=== PATIENT | female | born 1940 | race Caucasian/White ===

== ENCOUNTER 2022-01-16 00:23 | Outpatient (CLI) | payer MEDICARE, SELFPAY ==
--- NOTE | 2022-01-16 | DI.MRI_ITS ---
Exam(s) MR ABDOMEN WO/W EXAM: MR ABDOMEN WO/W CLINICAL HISTORY: F/U ABNL IMAGING, R93.5,? GB CA TECHNIQUE: Multiplanar multisequence MRA of the Abdomen was performed. Additional arterial and berenice ous phase post contrast imaging. MRCP sequences also performed. Some sequences degraded by respirat ory motion. CONTRAST MATERIAL: IV Contrast: 17 mL of Dotarem contrast administered. COMPARISON: US US ABD LTD - ONE ORGAN/QUAD from 11/07/2021 FINDINGS: Liver: Unremarkable. Pancreas: Unremarkable. Gallbladder: Small amount layering sludge. No evidence of mass or wall thickening. Bile Ducts: Unremarkable. No common duct stone. Adrenals: Unremarkable. Kidneys: Unremarkable. Spleen: Unremarkable. Aorta: Unremarkable. Soft Tissues: Unremarkable. Bowel: No dilatation. Diverticulum descending duodenum. Bone: Unremarkable. Lymph Nodes: Unremarkable. Chest: Left atrial and left ventricular enlargement. Sternal wires. Small hiatal hernia. No pleura l or pericardial effusion. IMPRESSION: Small amount of gallbladder sludge. No evidence of gallbladder mass. Normal diameter common bile duct without evidence of stone. Diverticulum of the descending duodenum. Hiatal hernia. DATA REPOSITORY:
[2022-01-16] MEDS: Gadoterate meglumine 20 ML VIAL 10 ML IVP (11:26)
[2022-01-16] MEDS: Normal Saline Flush 10 ML SYR IVP (11:28)
== END 2022-01-16 00:43 ==
PROVIDERS: Visit Provider Student in an Organized Health Care Education/Training Program
DX: K82.8 Other specified diseases of gallbladder (principal); K57.10 Diverticulosis of small intestine without perforation or abscess without bleeding; K44.9 Diaphragmatic hernia without obstruction or gangrene; R93.5 Abnormal findings on diagnostic imaging of other abdominal regions, including retroperitoneum
CPT/HCPCS: 74183

== ENCOUNTER 2025-04-20 11:59 | Outpatient (CLI) | payer MEDICARE, SELFPAY ==
[2025-04-20] VITALS (7 sets, daily range): BP systolic 152–206; BP diastolic 56–86; PULSE 54–66; RESP 14–17; TEMP 36.7; O2SAT 97–98
--- NOTE | 2025-04-20 12:57 | PDOC.PAIN ---
Date of service: 04/20/25 Time of Service: 12:57 Pain Managment Procedure Note Procedure Note Procedure Note: PROCEDURE NOTE RIGHT INTRA-ARTICULAR SACROILIAC JOINT INJECTION Date of Service: April 20, 2025 Patient: Vi Berkowitz Provider: Az Dixon DO, MPH COMMENTS: I previously evaluated the patient in the office and their symptoms in relation to the sacroiliac joint pain have remained the same. 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 Vi was interviewed and the medical record reviewed. There were no medical, pharmacologic, radiographic or other structural contraindications to attempting a fluoroscopically-guided, contrast-enhanced, intra-articular Sacroiliac joint injection. The risks, benefits, and potential side effects of this procedure were reviewed with the patient. Questions and concerns were addressed. After it was clear that Vi was fully informed about the procedure, the printed consent form was signed by the patient and myself. Vi was placed in the prone position on the fluoroscopy table and an automated blood pressure cuff, 3 lead EKG, and pulse oximeter were applied. The skin entry point for approaching the Right sacroiliac joint was identified under the most advantageous fluoroscopic view and marked. Following thorough Chlorhexadine preparation of the skin and draping with sterile surgical drapes, 2 mls of 1% lidocaine was infiltrated into the skin at the entry point and the surrounding subcutaneous tissues. Next, a 3.5 22G spinal needle was placed under fluoroscopic guidance into the Right sacroiliac joint. Intra-articular placement was confirmed by a clear arthrogram resulting from the injection of 0.25ml of Omnipaque-240. Next, 1 ml of Depo- Medrol 80 mg/ml was injected intra-articularly with an initial reproduction of a significant component of the usual pain. This was followed with 1 ml of 1% Lidocaine. The needle was then removed without difficulty. (49 ml of Omnipaque-240 was wasted). Vi's vital signs were stable throughout the procedure and were as recorded in nursing records. Follow up plans and appointments were discussed with Vi. Post procedure instructions were given as documented in nursing records. Having met discharge criteria, Vi was discharged from the [facility]. COMMENTS: Post-procedure pain: VAS= 4/10. If the patient receives at least 50% improvement in pain and/or function for at least 3 months, this procedure can be repeated if needed. I personally performed this entire procedure. AZ DIXON DO, MPH ABPMR-subspecialty board certification in Pain Medicine [facility] Coding Conscious Sedation used for procedure: No CPT Codes: SI Joint Inj; incl Fluoro - 94391 ([id number] ~G) Additional Codes: Date of Service (32411) Date of service: 04/20/25
--- NOTE | 2025-04-20 13:00 | DI.RAD_ITS ---
Exam(s) XR PAIN CLINIC SACRIOILIAC 2V EXAM: XR PAIN CLINIC SACRIOILIAC 2V CLINICAL HISTORY: Dx: Sacroiliac Joint Dysfunction. TECHNIQUE: Fluoroscopy was provided for the referring physician for guidance with performing pain cl inic injection procedure. COMPARISON: No exams were available for comparison FINDINGS: Please see procedure note for details. Fluoro time: 16.2 seconds RADIATION DOSE DELIVERED: Ka,r=5.1 mGy
[2025-04-20] MEDS: Omnipaque 240 MG/ML 50 ML BTL IJ (13:09)
[2025-04-20] MEDS: Nerve Block Tray 1 EACH MC (13:09)
[2025-04-20] MEDS: methylPREDNISolone ACETATE 80 MG/ML VIAL IJ (13:09)
== END 2025-04-20 12:00 | disposition home or self-care (01) ==
LOC: PC 12:01
PROVIDERS: PCP Nurse Practitioner Family; Visit Provider Preventive Medicine Occupational Medicine
DX: M53.3 Sacrococcygeal disorders, not elsewhere classified (principal); M54.50 Low back pain, unspecified
CPT/HCPCS: 27096; 72200; J1010; Q9967

== ENCOUNTER 2025-06-16 12:41 | Outpatient (CLI) | payer MEDICARE, SELFPAY ==
[2025-06-16] VITALS (9 sets, daily range): BP systolic 131–232; BP diastolic 68–104; PULSE 52–79; RESP 16–21; TEMP 36.5; O2SAT 96–98
--- NOTE | 2025-06-16 12:30 | DI.RAD_ITS ---
Exam(s) XR PAIN CLINIC LUMBAR SP 2V EXAM: XR PAIN CLINIC LUMBAR SP 2V CLINICAL HISTORY: Dx: Lumbar Radiculopathy. TECHNIQUE: Fluoroscopy was provided for the referring physician for guidance with performing pain clinic injection procedure. COMPARISON: No exams were available for comparison FINDINGS: Please see procedure note for details. Fluoro time: 30 seconds RADIATION DOSE DELIVERED: parisa Boyer=18.1 mGy
[2025-06-16] MEDS: methylPREDNISolone ACETATE 40 MG/ML VIAL IJ (13:22)
[2025-06-16] MEDS: Epidural Tray 1 EACH MC (13:23)
[2025-06-16] MEDS: Omnipaque 240 MG/ML 50 ML BTL IJ (13:23)
--- NOTE | 2025-06-25 07:35 | PDOC.PAIN ---
Date of service: 06/16/25 Time of Service: 12:33 Pain Managment Procedure Note Procedure Note Procedure Note: PROCEDURE NOTE LUMBAR EPIDURAL STEROID INJECTION Date of Service: June 16, 2025 Patient:Vi Benjamin? Provider: Az Dixon DO, MPH Vi Berkowitz has been referred to the [facility] for a lumbar epidural steroid injection. Pre-operative diagnosis: Lumbosacral Radiculopathy ICD-10 M54.16 Post-operative diagnosis: Same Pre-Procedure Pain: VAS= 6 /10 Comments: I saw the patient this morning in the office. She has a right L5 radiculopathy. Vi was interviewed and the medical record was reviewed.? There were no medical, pharmacologic, radiographic or other structural contraindications to attempting fluoroscopically guided Lumbar epidural steroid injection.? Risks, potential side effects, indications, and potential benefits of the procedure were reviewed with Vi.? Questions and concerns were addressed.? After it was clear that Vi was fully informed about the procedure, the printed consent form was signed by the patient and myself.? Vi was placed in the prone position on the fluoroscopy table and automated blood pressure cuff and pulse oximeter applied. The skin entry point for entering/approaching the epidural space for the lumbar epidural steroid injection was marked. Following thorough chlorhexadine preparation of the skin and draping and 1% lidocaine infiltration of the skin entry point and subcutaneous tissues, an 18 gauge Touhy needle was placed and advanced under fluoroscopic guidance and with loss of resistance technique into the L5-S1 epidural space. Needle tip placement and depth were aided and confirmed by fluoroscopy. There was no paresthesia or return of blood or CSF through the needle. 1 mls of Omnipaque 240 was injected with clear epidural spread confirmed with fluoroscopy. 80 mg of Depo-Medrol was? injected. This was followed by 1 ml of preservative-free normal saline to flush the steroid out of the needle. There was no unusual discomfort expressed by Vi. The needle was withdrawn without difficulty. (49 mls of Omnipaque was wasted) Vi was observed and was without hemodynamic, neurologic, or allergic reactions.? Fluoroscopic images were digitally archived. Vi's vital signs were stable throughout the procedure and were as recorded in nursing records. Follow up plans and appointments were discussed with Vi. Post procedure instruction was given as documented in nursing records and having met discharge criteria Vi was discharged from the [facility] Management [facility]. COMMENTS: No apparent complications. Post-procedure pain: VAS= 1/10. Vi to contact [facility] as needed. If at least 50% improvement in pain and/or function for at least 3 months is achieved, this procedure can be repeated. I personally performed this entire procedure. AZ DIXON DO, MPH ABPMR-subspecialty board certification in Pain Medicine [facility] Coding Conscious Sedation used for procedure: No CPT Codes: Inj Spine L/S w/Imaging - 71895 ([id number] ~G) Additional Codes: Date of Service (92281) Date of service: 06/16/25 Diagnoses: Lumbar radiculopathy
== END 2025-06-16 12:42 | disposition home or self-care (01) ==
PROVIDERS: PCP Nurse Practitioner Family; Visit Provider Preventive Medicine Occupational Medicine
DX: M54.50 Low back pain, unspecified (principal); M54.16 Radiculopathy, lumbar region
CPT/HCPCS: 62323; 72100; J1010; Q9967

== ENCOUNTER 2025-09-28 14:30 | Outpatient (CLI) | payer MEDICARE, SELFPAY ==
--- NOTE | 2025-09-28 06:00 | DI.RAD_ITS ---
Exam(s) XR PAIN CLINIC LUMBAR SP 2V EXAM: XR PAIN CLINIC LUMBAR SP 2V CLINICAL HISTORY: Dx: Lumbar Spondylosis TECHNIQUE: 2D and realtime digital imaging was performed. CONTRAST MATERIAL: Refer to procedure report. COMPARISON: No exams were available for comparison FINDINGS: Fluoroscopy was provided for Dr. Dixon during the performance of a lumbar medial branch block. Please refer to the procedure report for complete details. Ka,r=16 mGy IMPRESSION: RADIATION DOSE DELIVERED: 0.0 0.0 0
[2025-09-28 14:43] VITALS: BP 131/86; PULSE 60; RESP 20; TEMP 37; O2SAT 98
[2025-09-28] MEDS: Nerve Block Tray 1 EACH MC (15:20)
--- NOTE | 2025-09-28 15:44 | PDOC.PAIN_ITS ---
Date of service: 09/28/25 Time of Service: 15:44 Pain Managment Procedure Note Procedure Note Procedure Note: PROCEDURE NOTE Bilateral Lumbar Medial Branch Blocks Date of Service: September 28, 2025 Patient: Vi Berkowitz Provider: Az Dixon DO, MPH Vigaby Berkowitz has been referred to the [facility] for lumbar medial branch blocks. 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 Her low back pain has stayed the same. Vi was interviewed and the medical records were reviewed. There were no medical, pharmacologic, radiographic or other structural contraindications to attempting fluoroscopically guided local anesthetic lumbar medial branch blocks. Risks and potential side effects were discussed. I also discussed the potential benefit(s) of the procedure with Vi, and voiced concerns were addressed. After Vi was completely informed about the procedure, the printed consent form was signed. A standard time-out procedure was performed. Vi was placed in the prone position on the fluoroscopy table. Automated blood pressure cuff and pulse oximeter were applied. The skin entry points for approaching the anatomic target points of the segmental medial branches of bilat eral L3,L4,L5 were identified with fluoroscopy and marked. The skin at the target site area was thoroughly prepared with Chlorhexadine. The skin was then draped. Next, a 25 gauge 3.5 spinal needle was placed under fluoroscopic guidance down on to the target point (the articular pillar) for each respective segmental medial branch. Position was confirmed in A/P and lateral views. Aspiration revealed no blood or clear fluid. Next, 0.25ml of omnipaque 240 was injected at each level. No contrast following a vascular or neural pattern was visualized under continuous fluoroscopy. Next, 0.25 ml of preservative-free 0.5% bupivicaine was injected at each level. There was no unusual discomfort expressed by Vi. The needles were withdrawn without difficulty. (49 mls of Omnipaque was wasted) Vi was observed and was without hemodynamic, neurologic, or allergic reactions. Fluoroscopic images were digitally archived. Provacative testing using the Modified Mcclure's facet loading test- Left side Right Side Directly before the block VAS (0-10) = 9/10 VAS (0-10) = 9/10 Five minutes after the block VAS (0-10) = 6/10 VAS (0-10) = 6/10 Percentage relief obtained with this diagnostic block 40% 40% Any improved physical functioning directly after the blocks? Able to move her back much easier. Follow up plans and appointments were discussed with Vi. Vi was instructed to keep careful note of how the usual pain was modified by these injections. Specifically, to keep a pain diary for the next 4 hours using a numeric pain scale of 0-10 and report these results. Post procedure instruction was given as documented in the nursing documentation and having met discharge criteria, the patient was discharged from the [facility]. Based on the medial branches blocked today, if they patient has adequate relief and we are able to proceed to radiofrequency ablation, the treatment should result in the denervation of the bilateral L4-L5 and L5-S1 facet joints. We would expect to denervate a total of 4 facets during the radiofrequency ablation. COMMENTS: No apparent complications. Post-procedure pain: VAS= 6/10 Vi will call back with 0-4 hour post-procedure pain scores. I personally performed the entire procedure. AZ DIXON DO, MPH ABPM&R-subspecialty board certification in Pain Medicine [facility] Coding Conscious Sedation used for procedure: No CPT Codes: LMBB (includes Fluoro) Lumbar/Sacral, 2nd lvl - 87424 ([id number] ~G) LMBB (includes Fluoro) Lumbar/Sacral, single lvl *BILATERAL* - [id number] (6 271908~G5) Additional Codes: Date of Service () Diagnoses: lumbar spondylosis without myelopathy
[2025-09-28] MEDS: Omnipaque 240 MG/ML 50 ML BTL IJ (16:10)
[2025-09-28] MEDS: Bupivacaine 0.5% Pres-Free 10 ML VIAL IJ (16:10)
== END 2025-09-28 14:31 | disposition home or self-care (01) ==
LOC: PC 14:30
PROVIDERS: PCP Nurse Practitioner Family; Visit Provider Preventive Medicine Occupational Medicine
DX: M54.50 Low back pain, unspecified (principal); M47.816 Spondylosis without myelopathy or radiculopathy, lumbar region
CPT/HCPCS: 64493; 64494; 72100; J0665; Q9967

== ENCOUNTER 2025-10-11 14:10 | Outpatient (CLI) | payer MEDICARE, SELFPAY ==
[2025-10-11 14:15] VITALS: BP 155/78; PULSE 56; RESP 20; TEMP 37; O2SAT 98
--- NOTE | 2025-10-11 14:43 | PDOC.PAIN ---
Date of service: 10/11/25 Time of Service: 15:11 Pain Managment Procedure Note Procedure Note Procedure Note: LUMBAR MEDIAL BRANCH BLOCK #2 Location: Bilateral Medial Branches ? Levels: L3,4,5? (L4-5, L5-S1 FACET) ? Pre-procedure Diagnosis: M47.817 Spondylosis without myelopathy or radiculopathy, lumbosacral region M47.816 Spondylosis without myelopathy or radiculopathy, lumbar region ? Post-procedure Diagnosis:? The same as above ? Sedation: NONE? Estimated blood loss:? less than 2 ml ? Surgeon:? Champ Bryan MD COMMENT: Patient had? GREATER THAN 80 % relief after the first medial branch block for greater than the duration of the local anesthetic.? PRE PROCEDURE PAIN SCORE: 8/10. Patient has had pain radiating to right leg which was relieved with previous medial branch block ? Procedure Detail:? The procedure and potential risks were explained to the patient and informed written consent was obtained. The patient was escorted to the procedure room and placed in the prone position. Pillows were utilized for proper positioning and comfort.? Time out was performed in procedure room with nursing staff confirming the patient's identity, procedure to be performed, allergies, and any blood thinning or anti-platelet medications. The patient's lower back was prepped with chlorhexidine and draped in a sterile fashion. Sterile technique was maintained throughout the procedure.? Sterile gloves were used, a face mask was worn, and new single dose vials of all medications were used with the top being swabbed with alcohol and given time to dry prior to withdrawal of medication.? A left and right-sided oblique fluoroscopic view was obtained, with visualization of the: ?RIGHT and LEFT L3,4 and DORSAL RAMUS L5 AT SACRAL ALA ? junction of the transverse process and superior articular process. Lidocaine 1% was used to anesthetize the skin. A 22-gauge Quincke needle was advanced along the superior margin of the transverse process and lateral to the articular process.? It was directed inferiorly and medially so that the tip struck the junction of the base of the transverse process and the superior articular process. The needle was then walked over the superior aspect of the transverse process and advanced slightly along the course of the L3,4,5 medial branch nerves. Proper placement was verified in A/P, oblique and lateral views under fluoroscopy. At this location, following negative aspiration, 0.5ml 2% lidocaine was injected.? The patient tolerated the procedure well and was discharged home with instructions. Permanent images saved and recorded. Follow-up:?? Will plan to proceed with lumbar medial branch RFA if the patient gets good relief from today's procedure lasting for at least 2 hours. COMMENT:Pain went from 8/10 to 0/10. Before the patient left patient had 100% pain relief. Consider right L4 possibly L5 transforaminal for the radicular symptoms Coding Conscious Sedation used for procedure: No CPT Codes: LMBB (includes Fluoro) Lumbar/Sacral, single lvl *BILATERAL* - [id number] (2247034~G5) 50 - BILATERAL PROCEDURE LMBB (includes Fluoro) Lumbar/Sacral, 2nd lvl - 99730 (1024546 ~G) LT - LEFT SIDE, RT - RIGHT SIDE Additional Codes: Date of Service () Diagnoses: M47.817 Spondylosis without myelopathy or radiculopathy, lumbosacral region M47.816 Spondylosis without myelopathy or radiculopathy, lumbar region
[2025-10-11 14:56] VITALS: PULSE 78; O2SAT 96
[2025-10-11 15:00] VITALS: PULSE 74; O2SAT 98
[2025-10-11 15:10] VITALS: PULSE 75; O2SAT 97
--- NOTE | 2025-10-11 15:12 | DI.RAD_ITS ---
Exam(s) XR PAIN CLINIC LUMBAR SP 2V EXAM: XR PAIN CLINIC LUMBAR SP 2V CLINICAL HISTORY: DX: Lumbar Spondylosis. TECHNIQUE: Fluoroscopy was provided for the referring physician for guidance with performing pain clinic injection procedure. COMPARISON: No exams were available for comparison FINDINGS: Please see procedure note for details. Fluoro time: Seconds RADIATION DOSE DELIVERED: parisa Boyer=109.3 mGy
[2025-10-11] MEDS: Lidocaine 2% Pres-Free 5 ML VIAL IJ (15:19)
[2025-10-11] MEDS: Nerve Block Tray 1 EACH MC (15:19)
== END 2025-10-11 14:11 | disposition home or self-care (01) ==
LOC: PC 14:10
PROVIDERS: PCP Nurse Practitioner Family; Visit Provider Anesthesiology Pain Medicine
DX: M54.50 Low back pain, unspecified (principal); M47.816 Spondylosis without myelopathy or radiculopathy, lumbar region
CPT/HCPCS: 64493; 64494; 72100

== ENCOUNTER 2025-11-08 12:05 | Outpatient (CLI) | payer MEDICARE, SELFPAY ==
[2025-11-08] VITALS (14 sets, daily range): BP systolic 108–168; BP diastolic 58–90; PULSE 54–88; RESP 12–22; TEMP 37; O2SAT 92–97
--- NOTE | 2025-11-08 12:50 | PDOC.PAIN ---
Date of service: 11/08/25 Time of Service: 14:02 Pain Managment Procedure Note Procedure Note Procedure Note: Lumbar Medial Branch COOLED Radiofrequency Ablation COMMENT: Patient had greater than 80 % relief after 2 medial branch blocks . ? Location: Bilateral L3, and L4 medial Branches and dorsal ramus of L5 (L4-5, and L5-S1 joints) ? Pre-procedure Diagnosis: M47.817 Spondylosis without myelopathy or radiculopathy, lumbosacral region ? Post-procedure Diagnosis:? The same as above ? Sedation:?Intravenous line started 0.5mg of intravenous midazolam and fentanyl 50 mcg?were administered. An independent trained observer monitored the patient for the duration of the procedure.? Estimated blood loss:? less than 2 ml ? Surgeon: Champ Bryan MD ? Procedure Detail:? The procedure and potential risks were explained to the patient and informed written consent was obtained. The patient was escorted to the procedure room and placed in the prone position. Pillows were utilized for proper positioning and comfort. Time out was performed in the procedure room with nursing staff confirming the patient's identity, procedure to be performed, allergies, and any blood thinning or anti-platelet medications. The patient's lower back was prepped with ChloraPrep and draped in a sterile fashion.? Sterile technique was maintained throughout the procedure.? Sterile gloves were used, a face mask was worn, and new single dose vials of all medications were used with the top being swabbed with alcohol and given time to dry prior to withdrawal of medication. A left AND right-sided oblique fluoroscopic view was obtained, with visualization of the L4 junction of the transverse process and superior articular process. 2% lidocaine was used to anesthetize the skin. With fluoroscopic guidance, an 17 gauge 4mm active tip RF cannula was advanced to the superior margin of the transverse process and lateral to the superior articular process.? It was directed inferiorly and medially so that the tip struck the junction of the base of the transverse process and the superior articular process. The needle was then slightly advanced along the course of the L3 medial branch nerve. Proper placement was verified with oblique, AP, and lateral fluoroscopic views. Sensory tested with good response less than 1V. Motor testing was performed and was negative at 2V except for expected multifidus activation. A similar procedure was also performed at the ipsilateral L4 medial branch nerves and the dorsal ramus of L5 with negative motor testing at 2V except for expected multifidus activation. 1 ml of 2% lidocaine was injected through each needle tip to anesthetize the medial branch nerves.? After waiting for the local anesthetic to take effect, each nerve was then ablated at 60 degrees Celsius for 150 seconds. This was repeated on the opposite side at the same levels. The patient was monitored for any severe pain or radicular pain during the ablation and reported none. The patient tolerated the procedure well, and was discharged in stable condition.? Permanent images were saved and recorded. PAIN: PRE PROCEDURE 10 POST PROCEDURE Plan: F/U PRN COMMENT: Repeat prn if 6 months relief of 50% Patient with some post procedure nausea- 4mg IVP zofran given Coding Conscious Sedation used for procedure: Yes CPT Codes: Single Facet Joint, Lumbar/Sacral *BILATERAL* - 007751L ([id number]~G) 50 - BILATERAL PROCEDURE Single Facet Joint, Lumbar/Sacral cool each add'l - 05802U (46671H89~G) LT - LEFT SIDE, RT - RIGHT SIDE Moderate sedation; First 15 min - 73930 (65904) Moderate sedation; add. 15 increments - 36869 (71029) Additional Codes: Date of Service () Diagnoses: M47.817 Spondylosis without myelopathy or radiculopathy, lumbosacral region
[2025-11-08] MEDS: fentaNYL 100 MCG/2 ML VIAL IVP ×2 (13:10→13:20)
[2025-11-08] MEDS: Midazolam 2 MG/2 ML VIAL IVP (13:10)
[2025-11-08] MEDS: Lactated Ringers 500 ML 30 ML IV (13:26)
[2025-11-08] MEDS: Nerve Block Tray 1 EACH MC (13:26)
--- NOTE | 2025-11-08 14:03 | DI.RAD_ITS ---
Exam(s) XR PAIN CLINIC LUMBAR SP 2V EXAM: XR PAIN CLINIC LUMBAR SP 2V CLINICAL HISTORY: DX: Lumbar Spondylosis. TECHNIQUE: Fluoroscopy was provided for the referring physician for guidance with performing pain clinic injection procedure. COMPARISON: No exams were available for comparison FINDINGS: Please see procedure note for details. Fluoro time: 77.7 seconds RADIATION DOSE DELIVERED: parisa Boyer=29.2 mGy
[2025-11-08] MEDS: Lidocaine 2% Multi-Dose 20 ML VIAL IJ (14:07)
[2025-11-08] MEDS: Ondansetron 4 MG/2 ML VIAL (14:20)
== END 2025-11-08 12:06 | disposition home or self-care (01) ==
LOC: PC 12:05
PROVIDERS: PCP Nurse Practitioner Family; Visit Provider Anesthesiology Pain Medicine
DX: M54.50 Low back pain, unspecified (principal); M47.817 Spondylosis without myelopathy or radiculopathy, lumbosacral region
CPT/HCPCS: 64635; 64636; 72100; J2003; J2250; J2405; J3010